=== PATIENT | female | born 1930 | race Caucasian/White ===

== ENCOUNTER 2018-07-27 16:18 | Emergency (ER) | payer OTHER ==
[~2018-07-27] VITALS: Ht 162.6 cm; Wt 58.1 kg
[2018-07-27 16:32] VITALS: BP_SYST 125
[2018-07-27] MEDS ORDERED: ACETAMINOPHEN 325 MG TABLET PO ONE (18:30)
[2018-07-27 20:26] VITALS: BP_SYST 130
== END 2018-07-27 20:26 | disposition home or self-care (01) ==
LOC: SED 16:18
DX: S09.90XA Unspecified injury of head, initial encounter (principal); W18.09XA Striking against other object with subsequent fall, initial encounter; Y93.89 Activity, other specified; Y92.89 Other specified places as the place of occurrence of the external cause; Y99.8 Other external cause status
CPT/HCPCS: 70450-TC; 70486-TC; 72125-TC; 73030; 73090; 99284

== ENCOUNTER 2019-12-15 12:41 | Emergency (ER) | payer OTHER ==
[~2019-12-15] VITALS: Ht 165.1 cm; Wt 54.4 kg
[2019-12-15 13:10] VITALS: BP_SYST 172
--- NOTE | 2019-12-15 13:30 | NUR ---
RECEIVED AND IN ROOM, TRANSFERED VIA , ABLE TO BEAR WEIGHT. PLACED ON MONTR
[2019-12-15] MEDS ORDERED: NACL 0.9% 1,000 ML IV ONE (13:42)
--- NOTE | 2019-12-15 13:45 | NUR ---
DR TRIPLETT IN TO ASSESS. PT CALM, ALERT, NAD
[2019-12-15 14:09] LABS: BASOPHILS % (AUTO) 0.7 % (0.0-2.0); EOSINOPHILS # (AUTO) 0.1 K/uL (0.0-0.4); EOSINOPHILS % (AUTO) 1.5 % (0.0-4.0); HEMOGLOBIN 12.8 g/dL (12.0-16.0); LYMPHOCYTES # (AUTO) 0.9 K/uL (1.0-5.5); LYMPHOCYTES % (AUTO) 24.1 % (20.5-51.5); MEAN CORPUSCULAR HEMOGLOBIN 33 pg (27-31); MEAN CORPUSCULAR HGB CONC 34 % (32-36); MEAN CORPUSCULAR VOLUME 97 fL (79.0-98.0); MONOCYTES # (AUTO) 0.4 K/uL (0.0-1.0); MONOCYTES % (AUTO) 10.6 % (1.7-9.3); NEUTROPHILS # (AUTO) 2.4 K/uL (1.8-7.7); NEUTROPHILS % (AUTO) 63.1 % (40.0-70.0); PLATELET COUNT (AUTO) 134 K/uL (130-430); RED BLOOD CELL COUNT(AUTO) 3.94 MIL/uL (4.2-6.2); WHITE BLOOD COUNT (AUTO) 3.9 K/uL (4.8-10.8)
[2019-12-15 14:23] LABS: ANION GAP 9 (5-15); CALCIUM 8.8 mg/dL (8.4-11.0); CHLORIDE 105 mmol/L (98-107); CREATININE 0.81 mg/dL (0.55-1.30); GLUCOSE 134 mg/dL (70-99); POTASSIUM 3.3 mmol/L (3.5-5.1); SODIUM SERUM 138 mmol/L (136-145); UREA NITROGEN, BLOOD 18 mg/dL (8-21)
[2019-12-15 14:28] LABS: ALANINE AMINOTRANSFERASE 21 U/L (12-78); ALBUMIN 3.5 g/dL (3.4-4.8); ASPARTATE AMINOTRANSFERASE 16 U/L (10-37); TOTAL BILIRUBIN 0.7 mg/dL (0.0-1.0)
[2019-12-15 15:48] LABS: BILIRUBIN,URINE NEGATIVE (NEGATIVE); BLOOD, URINE NEGATIVE (NEGATIVE); COLOR,URINE YELLOW (YELLOW); GLUCOSE,URINE NEGATIVE (NEGATIVE); KETONES,URINE NEGATIVE (NEGATIVE); LEUKOCYTE ESTERASE ,URINE 1+ (NEGATIVE); NITRITE, URINE NEGATIVE (NEGATIVE); PROTEIN URINE NEGATIVE (NEGATIVE); UROBILINOGEN,URINE 0.2 (0.2-1.0)
[2019-12-15 16:04] LABS: CLARITY/URINE HAZY (CLEAR)
[2019-12-15 16:11] LABS: BACTERIA,URINE MANY /HPF (None Seen); MUCUS,URINE 1+ /LPF (None Seen); RBC,URINE 0-3 /HPF (0-3)
[2019-12-15] MEDS ORDERED: NACL 0.9% 700 ML IV ONE (16:15)
[2019-12-15] MEDS ORDERED: cefTRIAXone 1 GM IVPB PREMIX 50 ML IV ONE (16:15)
[2019-12-15 17:05] VITALS: BP_SYST 164
== END 2019-12-15 17:05 | disposition home or self-care (01) ==
LOC: SED 12:41
DX: N39.0 Urinary tract infection, site not specified (principal); R41.0 Disorientation, unspecified; I10 Essential (primary) hypertension; E11.9 Type 2 diabetes mellitus without complications; Z86.73 Personal history of transient ischemic attack (TIA), and cerebral infarction without residual deficits
CPT/HCPCS: 36415; 71045; 80053; 81000; 83605; 85025; 87040; 87086; 93005; 96361; 96365; 99285; J0696; J7030

== ENCOUNTER 2020-02-26 16:45 | Inpatient (IN) | payer OTHER ==
[~2020-02-26] VITALS: Ht 162.6 cm; Wt 54.9 kg
[2020-02-26 17:06] VITALS: BP_SYST 155
[2020-02-26 17:37] LABS: BASOPHILS % (AUTO) 0.2 % (0.0-2.0); HEMOGLOBIN 13.2 g/dL (12.0-16.0); LYMPHOCYTES # (AUTO) 0.6 K/uL (1.0-5.5); LYMPHOCYTES % (AUTO) 4.5 % (20.5-51.5); MEAN CORPUSCULAR HEMOGLOBIN 32 pg (27-31); MEAN CORPUSCULAR HGB CONC 34 % (32-36); MEAN CORPUSCULAR VOLUME 95 fL (79.0-98.0); MONOCYTES # (AUTO) 0.9 K/uL (0.0-1.0); MONOCYTES % (AUTO) 7.6 % (1.7-9.3); NEUTROPHILS % (AUTO) 87.7 % (40.0-70.0); PLATELET COUNT (AUTO) 128 K/uL (130-430); RED BLOOD CELL COUNT(AUTO) 4.09 MIL/uL (4.2-6.2); RED CELL DISTRIBUTION WIDTH 12.2 % (9.0-15.0); WHITE BLOOD COUNT (AUTO) 12.5 K/uL (4.8-10.8)
[2020-02-26 17:52] LABS: ANION GAP 10 (5-15); CALCIUM 8.4 mg/dL (8.4-11.0); CHLORIDE 104 mmol/L (98-107); CREATININE 0.87 mg/dL (0.55-1.30); GLUCOSE 140 mg/dL (70-99); POTASSIUM 3.5 mmol/L (3.5-5.1); SODIUM SERUM 141 mmol/L (136-145); UREA NITROGEN, BLOOD 16 mg/dL (8-21)
[2020-02-26 17:57] LABS: ALANINE AMINOTRANSFERASE 13 U/L (12-78); ALBUMIN 3.6 g/dL (3.4-4.8); ASPARTATE AMINOTRANSFERASE 14 U/L (10-37); LIPASE 175 U/L (73-393); TOTAL BILIRUBIN 0.9 mg/dL (0.0-1.0)
[2020-02-26] MEDS ORDERED: ONDANSETRON HCL 4 MG/2 ML VIAL IVP ONE (18:00)
[2020-02-26] MEDS ORDERED: NACL 0.9% 1,000 ML IV ONE ×2 (18:00→19:15)
[2020-02-26] MEDS ORDERED: ONDANSETRON HCL 4 MG/2 ML VIAL ONE (18:10)
[2020-02-26 18:38] LABS: BILIRUBIN,URINE NEGATIVE (NEGATIVE); BLOOD, URINE 3+ (NEGATIVE); CLARITY/URINE CLOUDY (CLEAR); COLOR,URINE BROWN (YELLOW); GLUCOSE,URINE NEGATIVE (NEGATIVE); KETONES,URINE TRACE (NEGATIVE); LEUKOCYTE ESTERASE ,URINE 2+ (NEGATIVE); NITRITE, URINE POSITIVE (NEGATIVE); PH,URINE 7.5 (5.0-8.0); PROTEIN URINE 2+ (NEGATIVE)
[2020-02-26 18:40] LABS: BACTERIA,URINE MODERATE /HPF (None Seen); MUCUS,URINE None Seen /LPF (None Seen); RBC,URINE >100 /HPF (0-3); WBC,URINE 20-50 /HPF (0-3)
[2020-02-26] MEDS ORDERED: LEVOFLOXACIN 500 MG/D5W 100 ML IV ONE (19:15)
[2020-02-26] MEDS ORDERED: levoFLOXacin 500 MG TABLET PO ONE (19:15)
[2020-02-26] MEDS ORDERED: DIPH-TET-PERTUS Vaccine 0.5 ML VIAL (ADACEL) I.M. ONE (19:15)
[2020-02-26] MEDS ORDERED: ALBUTEROL SULFATE 0.083% 2.5 MG/3 ML VIAL.NEB INH PRN (21:00)
[2020-02-26] MEDS ORDERED: MORPHINE 2 MG/ML INJ. SYRINGE IVP PRN (21:00)
[2020-02-26] MEDS ORDERED: INSULIN REGULAR, HUMAN 100 UNITS/ML, 10 ML VIAL (humuLIN R) SUBCUT PRN (21:00)
[2020-02-26] MEDS ORDERED: NALOXONE HCL 0.4 MG/ML AMP (NARCAN) IVP PRN (21:00)
[2020-02-26] MEDS ORDERED: hydrALAZINE HCL 20 MG/ML VIAL IVP PRN (21:00)
[2020-02-26 21:42] VITALS: BP_SYST 148
[2020-02-26] MEDS: TEMAZEPAM 7.5 MG CAPSULE PO PRN (22:49)
[2020-02-26] MEDS: NACL 0.9% 1,000 ML IV SCH (22:50)
[2020-02-26] MEDS ORDERED: cefTRIAXone 1 GM IVPB PREMIX 100 ML IV ONE (23:48)
[2020-02-27] VITALS (7 sets, daily range): BP systolic 139–167
[2020-02-27 06:24] LABS: BASOPHILS % (AUTO) 0.1 % (0.0-2.0); HEMATOCRIT 34.1 % (36-48); HEMOGLOBIN 11.8 g/dL (12.0-16.0); LYMPHOCYTES # (AUTO) 1.2 K/uL (1.0-5.5); LYMPHOCYTES % (AUTO) 11.8 % (20.5-51.5); MEAN CORPUSCULAR HEMOGLOBIN 33 pg (27-31); MEAN CORPUSCULAR HGB CONC 35 % (32-36); MEAN CORPUSCULAR VOLUME 97 fL (79.0-98.0); MONOCYTES % (AUTO) 9.8 % (1.7-9.3); NEUTROPHILS # (AUTO) 8.3 K/uL (1.8-7.7); NEUTROPHILS % (AUTO) 78.3 % (40.0-70.0); PLATELET COUNT (AUTO) 113 K/uL (130-430); RED BLOOD CELL COUNT(AUTO) 3.53 MIL/uL (4.2-6.2); RED CELL DISTRIBUTION WIDTH 12.2 % (9.0-15.0); WHITE BLOOD COUNT (AUTO) 10.6 K/uL (4.8-10.8)
[2020-02-27 06:33] LABS: ALANINE AMINOTRANSFERASE 13 U/L (12-78); ALBUMIN 2.9 g/dL (3.4-4.8); ANION GAP 7 (5-15); ASPARTATE AMINOTRANSFERASE 17 U/L (10-37); CALCIUM 7.7 mg/dL (8.4-11.0); CHLORIDE 107 mmol/L (98-107); CREATININE 0.61 mg/dL (0.55-1.30); GLUCOSE 89 mg/dL (70-99); SODIUM SERUM 143 mmol/L (136-145); TOTAL BILIRUBIN 0.6 mg/dL (0.0-1.0); UREA NITROGEN, BLOOD 12 mg/dL (8-21)
[2020-02-27] MEDS: NACL 0.9% 1,000 ML IV SCH (06:50)
[2020-02-27 07:32] LABS: POTASSIUM 2.9 mmol/L (3.5-5.1)
[2020-02-27] MEDS ORDERED: POTASSIUM CHLORIDE 20 MEQ/PKT PACKET PO ONE ×2 (08:00→12:00)
[2020-02-27] MEDS ORDERED: POTASSIUM CHLORIDE 20 MEQ TAB.PRT.SR PO ONE ×2 (08:00→12:00)
[2020-02-27] MEDS ORDERED: ACETAMINOPHEN 325 MG TABLET PO PRN (20:45)
[2020-02-27] MEDS ORDERED: ONDANSETRON HCL 4 MG/2 ML VIAL IVP PRN (20:45)
[2020-02-28 00:15] VITALS: BP_SYST 125
[2020-02-28 12:55] VITALS: BP_SYST 155
[2020-02-28 16:25] VITALS: BP_SYST 127
[2020-02-28 20:04] VITALS: BP_SYST 139
[2020-02-28] MEDS: TEMAZEPAM 7.5 MG CAPSULE PO PRN (22:59)
[2020-02-29 00:57] VITALS: BP_SYST 131
[2020-02-29 08:30] VITALS: BP_SYST 155
[2020-02-29 12:44] VITALS: BP_SYST 154
[2020-02-29 16:11] VITALS: BP_SYST 160
[2020-02-29 20:54] VITALS: BP_SYST 151
[2020-02-29] MEDS: TEMAZEPAM 7.5 MG CAPSULE PO PRN (21:05)
[2020-03-01 00:24] VITALS: BP_SYST 132
[2020-03-01 08:00] VITALS: BP_SYST 150
[2020-03-01] MEDS ORDERED: LEVO500T89 PO (10:31)
[2020-03-01] MEDS ORDERED: SIMV40TA2 PO (11:04)
[2020-03-01] MEDS ORDERED: LISI-209 PO (11:04)
[2020-03-01] MEDS ORDERED: LEVO100T9 PO (11:04)
[2020-03-01] MEDS ORDERED: DORZ10DR13 EACH EYE (11:05)
[2020-03-01] MEDS ORDERED: VITD2000 PO (11:06)
[2020-03-01] MEDS ORDERED: GLU500 PO (11:07)
[2020-03-01] MEDS ORDERED: ASPI-1457 PO (11:07)
[2020-03-01 12:12] VITALS: BP_SYST 150
[2020-03-01 12:37] VITALS: BP_SYST 129
== END 2020-03-01 14:50 | disposition home or self-care (01) | DRG 871 ==
LOC: SED 16:45 → STU 19:04
PROVIDERS: ADMIT Internal Medicine Hospice and Palliative Medicine; ATTEND Internal Medicine Hospice and Palliative Medicine
DX: A41.52 Sepsis due to Pseudomonas (principal); G93.41 Metabolic encephalopathy; N39.0 Urinary tract infection, site not specified; E87.2 Acidosis; N93.9 Abnormal uterine and vaginal bleeding, unspecified; D69.6 Thrombocytopenia, unspecified; R31.9 Hematuria, unspecified; E11.9 Type 2 diabetes mellitus without complications; I10 Essential (primary) hypertension; Z86.73 Personal history of transient ischemic attack (TIA), and cerebral infarction without residual deficits; Z83.3 Family history of diabetes mellitus; Z88.0 Allergy status to penicillin; Z88.6 Allergy status to analgesic agent
CPT/HCPCS: 36415; 71045; 80053; 81000-TC; 82962; 83605; 83690-TC; 84484; 85025; 87040-TC; 87086; 87186-TC; 96365; 96375; 97110-GP; 97116-GP; 97530-GP; 99291; G0378; J0360; J0696; J1815; J1956; J2405; J7030; J7050; J7060